=== PATIENT | male | born 1990 | race Caucasian/White ===

== ENCOUNTER 2021-02-09 17:53 | Outpatient (CLI) | payer OTHER, MEDICAID | END 2021-02-09 17:54 | disposition critical access hospital (66) | LOC: EMS 17:53 | DX: R56.9 Unspecified convulsions (principal) | CPT/HCPCS: A0425; A0427 ==

== ENCOUNTER 2021-08-20 16:19 | Outpatient (CLI) | payer OTHER, MEDICAID | END 2021-08-20 16:20 | disposition critical access hospital (66) | LOC: EMS 16:19 | DX: R56.9 Unspecified convulsions (principal) | CPT/HCPCS: A0425; A0429 ==

== ENCOUNTER 2021-08-20 16:40 | Emergency (ER) | payer OTHER, MEDICAID ==
[2021-08-20 17:34] LABS: MUDS CUTOFF CONCENTRATIONS CUTOFF CONC BELOW:
[2021-08-20 17:37] LABS: GLUCOSE, URINE (UA) 250 mg/dL (NEGATIVE); KETONES,URINE (UA) >=80 mg/dL (NEGATIVE); LEUKOCYTE ESTERASE, URINE NEGATIVE (NEGATIVE); NITRITE,URINE NEGATIVE (NEGATIVE); OCCULT BLOOD,URINE LARGE (NEGATIVE); PROTEIN,URINE 100 mg/dL (NEGATIVE); UROBILINOGEN,URINE 0.2 (NORMAL) E.U./dL (NORMAL)
[2021-08-20 17:39] LABS: BASOPHILS # (AUTO) 0.1 10^3/uL (0.0-0.1); BASOPHILS % (AUTO) 1.2 %; EOSINOPHILS # (AUTO) 0.2 10^3/uL (0.0-0.7); EOSINOPHILS % (AUTO) 4.5 %; LYMPHOCYTES # (AUTO) 0.2 10^3/uL (1.5-3.5); LYMPHOCYTES % (AUTO) 3.5 %; MEAN CORPUSCULAR HEMOGLOBIN 34.8 pg (27.0-31.0); MEAN CORPUSCULAR HGB CONC 34.9 g/dL (32.0-36.0); MEAN CORPUSCULAR VOLUME 99.8 fL (80.0-94.0); MEAN PLATELET VOLUME 9.4 fL (7.4-11.4); MONOCYTES # (AUTO) 0.3 10^3/uL (0.0-1.0); MONOCYTES % (AUTO) 6.8 %; NEUTROPHILS # (AUTO) 4.1 10^3/uL (1.5-6.6); NEUTROPHILS % (AUTO) 83.6 %; PLT - PLATELET COUNT 138 10^3/uL (130-450); RED BLOOD COUNT 4.31 10^6/uL (4.70-6.10); WHITE BLOOD COUNT 4.9 x10^3/uL (4.8-10.8)
[2021-08-20] MEDS ORDERED: SODIUM CHLORIDE 0.9% 1,000 ML IV STA (17:39)
--- NOTE | 2021-08-20 17:41 | ED Physician Documentation ---
History of Present Illness - Stated complaint Stated Complaint: SEIZURE - Chief complaint Chief Complaint: Neuro - Additonal information Additional information: 30-year-old male presents emergency department for evaluation after a syncopal episode. He reports that he was told he seized though EMS could not confirm this on scene. Patient reports that he had a syncopal episode that was similar to this about 2 months ago. Patient reports that when he was stressed, hot dizzy and working he begins to feel faint and lightheaded and then suddenly passes out. He denies that he is having any chest pain, back pain or shortness of air. Denies any illicit drug use. Previous to the syncopal episode just a few months ago no previous history such as this. He states that he was recently prescribed Adderall but it could not be filled because there was a problem with his pharmacy. Patient does endorse moderate to heavy alcohol use. Typically drinks 3-4 shots of liquor a night though I suspect it is more than he states. Review of Systems Constitutional: denies: Fever, Chills Eyes: reports: Reviewed and negative Ears: reports: Reviewed and negative Nose: reports: Reviewed and negative Throat: reports: Reviewed and negative Cardiac: reports: Reviewed and negative Respiratory: reports: Reviewed and negative GI: reports: Reviewed and negative. denies: Abdominal Pain, Nausea, Vomiting : reports: Reviewed and negative Skin: reports: Reviewed and negative Musculoskeletal: reports: Reviewed and negative Neurologic: reports: Syncope. denies: Numbness, Difficulty speaking, Seizure, Headache, Head injury, LOC Psychiatric: reports: Reviewed and negative PD PAST MEDICAL HISTORY - Past Medical History Past Medical History: Yes Cardiovascular: None Respiratory: Asthma Neuro: Seizure disorder Endocrine/Autoimmune: None GI: Ulcers : None HEENT: None Psych: ADD/ADHD Musculoskeletal: None Derm: None - Past Surgical History Past Surgical History: No - Present Medications Home Medications: Ambulatory Orders Medication Instructions Recorded Confirmed No Known Home Medications 08/20/21 08/20/21 - Allergies Allergies/Adverse Reactions: Allergies Allergy/AdvReac Type Severity Reaction Status Date / Time No Known Drug Allergies Allergy Verified 08/20/21 16:57 - Social History Does the pt smoke?: No Smoking Status: Never smoker Does the pt drink ETOH?: Yes Does the pt have substance abuse?: No - Immunizations Immunizations are current?: Yes PD ED PE NORMAL - General General: Alert and oriented X 3, No acute distress, Well developed/nourished - HEENT HEENT: Atraumatic, Moist mucous membranes, Pharynx benign - Neck Neck: Supple, no meningeal sign, No adenopathy, No JVD - Cardiac Cardiac: RRR, No murmur, No gallop, Strong equal pulses - Respiratory Respiratory: No respiratory distress, Clear bilaterally - Abdomen Abdomen: Normal bowel sounds, Non tender - Back Back: No CVA TTP, No spinal TTP - Derm Derm: Normal color, Warm and dry, No rash, Other (Superficial abrasion right parietal scalp) - Extremities Extremities: No deformity, No tenderness to palpate, Normal ROM s pain - Neuro Neuro: Alert and oriented X 3, rn wound care 2-12 intact Eye Opening: Spontaneous Motor: Obeys Commands Verbal: Oriented GCS Score: 15 Results - Vitals Vitals: Vital Signs - 24 hr 08/20/21 08/20/21 08/20/21 16:53 18:23 19:05 Temperature 37.1 C Heart Rate 95 98 Heart Rate [ 96 Sitting] Heart Rate [ 103 H Standing] Heart Rate [ 92 Supine] Respiratory 19 16 Rate Blood Pressure 147/104 H 151/105 H Blood Pressure 151/104 H [Sitting] Blood Pressure 148/100 H [Standing] Blood Pressure 144/104 H [Supine] O2 Saturation 98 100 08/20/21 08/20/21 20:18 20:36 Temperature Heart Rate 99 Heart Rate [ Sitting] Heart Rate [ Standing] Heart Rate [ Supine] Respiratory 15 16 Rate Blood Pressure 144/91 H Blood Pressure [Sitting] Blood Pressure [Standing] Blood Pressure [Supine] O2 Saturation 99 Oxygen O2 Source Room air - EKG (time done) 1810 Rate: Rate (enter#) (88) Rhythm: NSR [place]: Normal Intervals: Normal IA. No: Prolonged QT Ischemia: ST elevation c/w repol Compare to prior EKG: Old EKG unavailable Computer interpretation: Agree with computer - Labs Labs: Laboratory Tests 08/20/21 08/20/21 08/20/21 17:20 17:28 17:28 WBC 4.9 RBC 4.31 L Hgb 15.0 Hct 43.0 MCV 99.8 H MCH 34.8 H MCHC 34.9 RDW 12.0 Plt Count 138 MPV 9.4 Neut # (Auto) 4.1 Lymph # (Auto) 0.2 L [place] # (Auto) 0.3 Eos # (Auto) 0.2 Baso # (Auto) 0.1 Absolute Nucleated RBC 0.00 Nucleated RBC % 0.0 Sodium 138 Potassium 4.0 Chloride 98 L Carbon Dioxide 23 Anion Gap 17.0 H BUN 14 Creatinine 0.8 Estimated GFR (MDRD) 114 Glucose 153 H Calcium 10.0 Total Bilirubin 3.0 H AST 164 H ALT 136 H Alkaline Phosphatase 62 Total Protein 8.5 H Albumin 5.3 Globulin 3.2 Albumin/Globulin Ratio 1.7 Lipase 41 Urine Color YELLOW Urine Clarity CLEAR Urine pH 6.0 Ur Specific [place] >=1.030 H Urine Protein 100 H Urine Glucose (UA) 250 H Urine Ketones >=80 H Urine Occult Blood LARGE H Urine Nitrite NEGATIVE Urine Bilirubin NEGATIVE Urine Urobilinogen 0.2 (NORMAL) Ur Leukocyte Esterase NEGATIVE Urine RBC 0-5 Urine WBC 0-3 Ur Squamous Epith Cells RARE Squamous Amorphous Sediment Rare Urine Bacteria Rare Urine Mucus Few Strands Ur Microscopic Review INDICATED Urine Culture Comments NOT INDICATED Urine Opiates Screen NEGATIVE Ur Oxycodone Screen NEGATIVE Urine Methadone Screen NEGATIVE Ur Propoxyphene Screen NEGATIVE Ur Barbiturates Screen NEGATIVE Ur Tricyclics Screen NEGATIVE Ur Phencyclidine Scrn NEGATIVE Ur Amphetamine Screen NEGATIVE U Methamphetamines Scrn NEGATIVE U Benzodiazepines Scrn NEGATIVE Urine Cocaine Screen NEGATIVE U Cannabinoids Screen NEGATIVE - Rads (name of study) CT head Radiology: Final report received (No significant intracranial abnormality is seen. No intracranial hemorrhage is seen.) abd US Radiology: Final report received (Marked hepatomegaly without findings of obstruction) PD MEDICAL DECISION MAKING - ED course Complexity details: reviewed results, re-evaluated patient, d/w patient ED course: 30-year-old male presents emergency department with reported syncope at work. 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 EMS was told that he had seizure activity but this cannot be verified. He had a similar episode about a month ago. Today screening CT scan was unremarkable. Patient does endorse moderate to heavy alcohol use consuming 3-4 Shots of liquor nightly. He was mildly tremulous on exam. Stated his last alcohol drink was at midnight yesterday. Screening labs today showed modest LFT elevation. No abdominal pain was elicited. Limited abdominal ultrasound did not reveal any findings of obstruction within the gallbladder or liver. Hepatitis panel is pending. Patient reports to me that he is eager to cut back on his drinking. He is not interested in detox today. We discussed that abrupt cessation of alcohol use can be life-threatening therefore he is to cut back to avoid withdrawals or DTs. He will also follow-up closely with his primary care doctor to discuss his LFT abnormalities. I have made the recommendation that he should be seen by a psychodramatist as I suspect he is developing early cirrhosis. Otherwise the urine today does suggest microscopic hematuria. No dysuria or other findings suggest infection. Patient advised close follow-up with primary care provider and would likely benefit from referral to urology. Departure - Departure Disposition: 01 Home, Self Care Clinical Impression: Syncope and collapse, Alcohol abuse, Abnormal LFTs (liver function tests) Hematuria Qualifiers: Hematuria type: other microscopic Qualified Code(s): R31.29 - Other microscopic hematuria; R31.2 - Other microscopic hematuria Condition: Stable Record reviewed to determine appropriate education?: Yes Instructions: Alcoholism Comments: Tim you were seen today after you fainted at work. It is not clear in the reports from EMS if you had a seizure or not. The CT of your head was normal. Your screening labs today do show elevated liver function test. The abdominal ultrasound does not show any findings of obstruction but you do have a very enlarged liver. You may be developing early cirrhosis. It is important that you cut back on your drinking but do not stop abruptly as alcohol withdrawal can be life-threatening. Your urine today did show some blood in it. There is no signs of infection. This will also need to be followed up closely with your primary care doctor as the bloody urine may need referral to a urologist. Discharge Date/Time: 08/20/21 20:40
[2021-08-20 17:49] LABS: ALBUMIN 5.3 g/dL (3.2-5.5); ALBUMIN/GLOBULIN RATIO 1.7 (1.0-2.2); CREATININE 0.8 mg/dL (0.6-1.2); TOTAL PROTEIN 8.5 g/dL (6.7-8.2)
[2021-08-20 17:56] LABS: BILIRUBIN,URINE NEGATIVE (NEGATIVE); CLARITY,URINE CLEAR (CLEAR); ICTOTEST,URINE NEGATIVE
[2021-08-20 17:57] LABS: AMORPHOUS SEDIMENT,UR Rare /LPF; AMPHETAMINE SCREEN,URINE NEGATIVE (NEGATIVE); BACTERIA,URINE Rare /HPF (None Seen); BARBITURATE SCREEN,UR NEGATIVE (NEGATIVE); BENZODIAZEPINES SCREEN, URINE NEGATIVE (NEGATIVE); COCAINE SCREEN URINE NEGATIVE (NEGATIVE); METHADONE SCREEN, URINE NEGATIVE (NEGATIVE); METHAMPHETAMINES SCREEN, URINE NEGATIVE (NEGATIVE); MUCUS,URINE Few Strands; OPIATE SCREEN, URINE NEGATIVE (NEGATIVE); OXYCODONE SCREEN, URINE NEGATIVE (NEGATIVE); PROPOXYPHENE SCREEN, URINE NEGATIVE (NEGATIVE); RBC,URINE 0-5 /HPF (0-5); SQUAMOUS EPITHELIAL CELL,UR RARE Squamous (<= Few); THC CANNABINOID SCREEN, URINE NEGATIVE (NEGATIVE); TRICYCLIC ANTIDEPRESSANT,URINE NEGATIVE (NEGATIVE); WBC,URINE 0-3 /HPF (0-3)
--- NOTE | 2021-08-20 18:05 | CT Report ---
PROCEDURE: HEAD WO INDICATIONS: ? syncope vs seizure TECHNIQUE: Noncontrast 4.5 mm thick angled axial sections acquired from the foramen magnum to the vertex. For r adiation dose reduction, the following was used: automated exposure control, adjustment of mA and/or kV according to patient size. COMPARISON: None. FINDINGS: Image quality: Excellent. CSF spaces: Basal cisterns are patent. No extra-axial fluid collections. Ventricles are normal in size and shape. Brain: No midline shift. No intracranial masses or hemorrhage. Spangler-white matter interface is norm al. Skull and face: Calvarium and visualized facial bones are intact, without suspicious lesions. Sinuses: Visualized sinuses and mastoids are clear. IMPRESSION: No significant intracranial abnormality is seen. No intracranial hemorrhage is seen. A cause of seizures is not identified on this noncontrast head CT. When clinically appropriate, please consider a dedicated seizure protocol MRI (without and with cont rast) for further evaluation (assuming that there is no contraindication). Reviewed by: Last Gerard MD on 08/20/2021 5:03 PM [facility] Approved by: Last Gerard MD on 08/20/2021 5:03 PM [facility] Station ID: [id number]
[2021-08-20] MEDS ORDERED: LORazepam 2 MG/ML VIAL IVP STA (18:50)
--- NOTE | 2021-08-20 19:54 | Ultrasound Report ---
PROCEDURE: Abdomen Limited INDICATIONS: abnormla lft TECHNIQUE: Real-time focused scanning was performed of the abdomen, with image documentation. COMPARISON: None. FINDINGS: The liver is enlarged measuring up to 8.6 cm in maximum dimension with diffuse increased echogenicity . The gallbladder appears normal without gallstones or gallbladder wall thickening. There is no pericho lecystic fluid. Sonographic Ramírez sign is negative. No significant intrahepatic or extrahepatic biliary duct dilatation. The visualized portions of the pancreas are within normal limits. The right kidney is normal in size without hydronephrosis. IMPRESSION: Hepatomegaly and diffusely increased hepatic echogenicity is nonspecific, but most commonly encounter ed in the setting of hepatic steatosis. However, other causes of hepatocellular disease are not exclu ded. Recommend clinical correlation. Reviewed by: Keagan Li MD on 08/20/2021 7:52 PM PST Approved by: Keagan Li MD on 08/20/2021 7:52 PM PST Station ID: [id number]
[2021-08-20 20:19] VITALS: BP 144/91
[2021-08-26 18:01] LABS: HEPATITIS A IGM NON-REACTIVE (NON-REACTIVE); HEPATITIS B CORE ANTIBODY IGM NON-REACTIVE (NON-REACTIVE); HEPATITIS B SURFACE ANTIGEN NON-REACTIVE (NON-REACTIVE); HEPATITIS C ANTIBODY NON-REACTIVE (NON-REACTIVE)
== END 2021-08-20 20:40 | disposition home or self-care (01) ==
LOC: EDUNIT# → ED 16:40
DX: F10.10 Alcohol abuse, uncomplicated (principal); R55 Syncope and collapse; R94.5 Abnormal results of liver function studies; R31.29 Other microscopic hematuria
CPT/HCPCS: 36415; 70450; 76705; 80053; 80074; 80306; 81001; 83690; 85025; 93005; 96361; 96374; 99283; 99284; J2060; 81003; 87086

== ENCOUNTER 2022-06-17 15:08 | Outpatient (CLI) | payer OTHER ==
--- NOTE | 2022-06-17 15:45 | XRAY Report ---
PROCEDURE: Chest 2 View X-Ray INDICATIONS: UNSPECIFIED FALL INITIAL ENCOUNTER TECHNIQUE: 2 views of the chest were acquired. COMPARISON: None FINDINGS: Surgical changes and devices: None. Lungs and pleura: No pleural effusions or pneumothorax. Lungs are clear. Mediastinum: Mediastinal contours are normal. Heart size is normal. Bones and chest wall: No suspicious bony abnormalities. Soft tissues appear unremarkable. IMPRESSION: No acute pulmonary process. Reviewed by: Joanne Szymanski MD on 06/17/2022 3:43 PM [facility] Approved by: Joanne Szymanski MD on 06/17/2022 3:43 PM [facility] Station ID: [id number]
--- NOTE | 2022-06-17 15:45 | XRAY Report ---
PROCEDURE: Thoracic Spine 3 View INDICATIONS: UNSPECIFIED FALL INITIAL ENCOUNTER TECHNIQUE: 3 views of the thoracic spine were acquired. COMPARISON: None. FINDINGS: Bones: No fractures or dislocations. No suspicious bony lesions. 12 pairs of ribs are noted, and a ppear intact where visualized. Soft tissues: No paravertebral stripe thickening. IMPRESSION: No visualized acute fracture or dislocation. However, occult injury cannot be excluded. Recommend grupo rt interval imaging follow-up in 7-10 days as clinically indicated for additional evaluation. Reviewed by: Joanne Szymanski MD on 06/17/2022 3:43 PM PST Approved by: Joanne Szymanski MD on 06/17/2022 3:43 PM PST Station ID: [id number]
== END 2022-06-17 15:09 | disposition home or self-care (01) ==
LOC: DI 15:08
PROVIDERS: ATTEND Nurse Practitioner
DX: R07.81 Pleurodynia (principal); W19.XXXA Unspecified fall, initial encounter; Y99.0 Civilian activity done for income or pay